=== PATIENT | female | born 1975 | race Native Hawaiian/Other Pacific Islander ===

== ENCOUNTER 2017-10-13 06:04 | Emergency (ER) | payer BC ==
[~2017-10-13] VITALS: Ht 160 cm; Wt 104.3 kg
[2017-10-13 06:18] VITALS: TEMP 97.9
[2017-10-13 06:42] LABS: PLATELET COUNT 395 K/uL (152-353)
[2017-10-13 06:55] LABS: POTASSIUM 3.9 mmol/L (3.6-5.2)
[2017-10-13 09:39] VITALS: BP 157/87
== END 2017-10-13 09:48 | disposition home or self-care (01) ==
LOC: ED 06:04
PROVIDERS: Allergy & Immunology
DX: N20.1 Calculus of ureter (principal); N23 Unspecified renal colic
CPT/HCPCS: 36415; 80053; 81000; 85027; 96360; 96361; 96374; 96375; 99284; J1885; J2175; J2550